=== PATIENT | female | born 1945 | race Caucasian/White ===

== ENCOUNTER 2017-01-06 19:17 | Emergency (ER) | payer MEDICARE ==
[2017-01-06 20:44] LABS: HEMOGLOBIN 12.2 gm/dl (12.3-15.3); RED BLOOD COUNT 4.46 M/UL (4.00-5.10); WHITE BLOOD COUNT 12.4 K/UL (4.5-11.0)
== END 2017-01-06 23:07 | disposition home or self-care (01) ==
LOC: ER1 19:17
PROVIDERS: Emergency Medicine
DX: R18.8 Other ascites (principal); Z85.028 Personal history of other malignant neoplasm of stomach; Z88.1 Allergy status to other antibiotic agents; Z88.2 Allergy status to sulfonamides; Z88.5 Allergy status to narcotic agent; Z88.8 Allergy status to other drugs, medicaments and biological substances
CPT/HCPCS: 36415; 80053; 81001; 83690; 85025; 85610; 85730; 87086; 93005; 99284